=== PATIENT | female | born 1945 | race Caucasian/White ===

== ENCOUNTER 2016-05-19 12:56 | Emergency (ER) | payer MEDICARE, SELFPAY ==
[2016-05-19 13:05] VITALS: TEMP 97.9; BMI 32.7
[2016-05-19] MEDS ORDERED: Albuterol/Ipratropium Neb 3 ML NEB NEB ONE (14:40)
[2016-05-19] MEDS ORDERED: METHYLPREDNISOLONE 125 MG/2 ML VIAL IV ONE (14:40)
[2016-05-19 14:53] LABS: BLOOD UREA NITROGEN 15 MG/DL (7-17); CALCIUM 9.9 MG/DL (8.4-10.2); CALCULATED OSMOLALITY 274 MOs/Kg (270-290); CHLORIDE 105 mEq/L (98-107); GLUCOSE 133 MG/DL (70-99); SODIUM LEVEL 141 mEq/L (137-146); TOTAL PROTEIN 8.1 G/DL (6.3-8.2)
--- NOTE | 2016-05-19 14:57 | DIRPT ---
CLINICAL DATA: Chest pain. Cough and congestion earlier this month. Productive cough. EXAM: PORTABLE CHEST 1 VIEW COMPARISON: 08/25/2014 FINDINGS: Facial tissues obscure the medial lung apices. Atherosclerotic aortic arch. Borderline enlargement of the cardiopericardial silhouette. Chronic interstitial accentuation and emphysema noted. Mildly indistinct pulmonary vasculature. No blunting of the costophrenic angles or discrete airspace opacity. IMPRESSION: 1. Emphysema, with some scattered mild scarring. Faint interstitial accentuation, likely chronic. 2. Borderline enlargement of the cardiopericardial silhouette. 3. No airspace opacity identified to suggest bacterial pneumonia process. Electronically Signed By: Jimmy Coyne M.D. On: 05/19/2016 14:54
[2016-05-19 14:58] LABS: PARTIAL THROMB. TIME 28.4 SEC (22-35)
[2016-05-19 14:58] LABS: LEUKOCYTES/URINE NEG (NEGATIVE); NITRITE/URINE NEG (NEGATIVE); RBC/URINE 0-2 (0-5); URINE OCCULT BLOOD NEG (NEG/TRACE)
[2016-05-19 14:59] LABS: AUTOMATED BASOPHIL 0.5 % (0-2); AUTOMATED EOSINOPHIL 0.3 % (0-5); AUTOMATED LYMPH 4.6 % (17-44); AUTOMATED MONOCYTE 1.3 % (3-10); AUTOMATED NEUTROPHIL 93.3 % (45-76); MPV 10.6 fL (7.4-10.4)
--- NOTE | 2016-05-19 16:25 | EDPRACDOC ---
<AdenKarlAngus - Last Filed: 05/19/16 17:09> - General Information Information Source: Patient - History of Present Illness Onset: ON-GOING HPI: C/o sob, productive cough(green) and chest and nasal congestion (green) since beginning of April. PCP gave abx and steroids on Apr 23 with dx of pneumonia. Pt took all abx and steroids but cough and congestion did not improve. Also c/o dark urine. Denies cp, fever, N/V/D, changes in BM. Hx of COPD on home O2 at night 2L, inhalers and nebs, which help. Med hx = COPD< HTN, ashtma, CHF. Surgical hx = none. Current Symptoms: Reports: Cough Shortness of Breath: Mild Cough: Reports: Productive, Green Ear Symptoms: Reports: None Fever Severity/Quality: Reports: no fever Oral Intake: Decreased Urinary Output: Normal Relevant History of: Heart Failure (CHF) Associated Signs & Symptoms:: Reports: Cough, Nasal Symptoms <Aureliano Alejandro - Last Filed: 05/19/16 19:06> - General Information Chief Complaint: Flu-Like Symptoms Stated Complaint: TROUBLE BREATHING CONGESTION HX COPD Home Medications: Home Medications Furosemide [Lasix] 20 mg PO DAILY 03/26/12 Montelukast Sodium [Singulair] 10 mg PO HS 03/26/12 Fluticasone/Salmeterol [Advair 250-50 Diskus] 1 puff INH BID 01/07/13 Ipratropium/Albuterol Sulfate [Combivent Respimat] 1 puff INH QID 01/07/13 Albuterol Sulfate [Ventolin Hfa] 2 puff INH Q6H PRN 09/25/13 Aspirin (Enteric Coated) [Halfprin] 81 mg PO DAILY 09/25/13 Loratadine [Claritin] 10 mg PO DIR 09/25/13 Zolpidem Tartrate [Ambien] 10 mg PO HS 09/25/13 Lactobacillus Acidophilus [Acidophilus] 1 cap PO DAILY #30 09/30/13 Cholecalciferol [Vitamin D3 (cholecalciferol)] 2,000 units PO DAILY 08/25/14 Nebulizer [Erapid Nebulizer] 1 each UNK 08/25/14 Albuterol/Ipratropium Neb [Duoneb] 3 ml NEB Q6H PRN 08/26/14 Fexofenadine HCl [Nereida] 180 mg PO DAILY #20 tab 05/19/16 Losartan Potassium 50 mg PO DAILY 05/19/16 Prednisone [Deltasone, Orasone] 40 mg PO DAILY 5 Days 05/19/16 Allergies/Adverse Reactions: Allergies Allergy/AdvReac Type Severity Reaction Status Date / Time theophylline anhydrous Allergy Severe Insomnia Verified 05/19/16 13:05 [From Cristian-Dur] amlodipine besylate Allergy Edema-Local Verified 05/19/16 13:05 [From Norvasc] ized gabapentin [From Neurontin] Allergy Edema-Gener Verified 05/19/16 13:05 alized ED Past Medical History - History Reviewed Yes Nurses notes reviewed and agree except as marked - Patient Medical History Cardiac History: Reports: Hypertension, Congestive Heart Failure (mild. ECHO 2010: EF 55%. NORMAL systolic function. Impaired relaxation.), Hypercholesterolemia Respiratory History: Reports: Asthma, COPD, Emphysema GI/ History: Reports: Renal Failure (CURRENTLY), Diverticulosis (hx ruptured diverticulum.) Musculoskeletal History: Reports: Arthritis (hands and back) Psychological History: Reports: Anxiety. Denies: Depression, Substance Use Disorder Systemic History: Reports: Hyperthyroidism. Denies: Cancer Surgical History: Reports: Hysterectomy, Tonsillectomy/Adnoidectomy, Other (Ex lab for ruptured diverticulum with colostomy; takedown. Cataracts.) - Family Medical History Reports: Hypertension (mother), Diabetes (sister, mother, father), Cancer ( mother), Cardiac Disorders (father). Denies: Stroke - Social Medical History Smoking Status: Former smoker Social History: Denies: Substance Use Disorder <Aureliano Alejandro - Last Filed: 05/19/16 19:06> EDM Review of Systems - Review of Systems ROS Negative Except as Marked: Yes All systems reviewed and were negative except as marked Nose: Congestion, Discharge Respiratory: Cough, Shortness of Breath Genitourinary: Foul Ordor, Other (dark urine) Neurological: Weakness (general) <Aureliano Alejandro - Last Filed: 05/19/16 19:06> - Physical Exam Last recorded Vital Signs: Last Vital Signs Temp 97.9 F 05/19/16 13:01 Pulse 84 05/19/16 15:29 Resp 22 05/19/16 15:29 BP 204/80 H 05/19/16 15:29 Pulse Ox 94 05/19/16 15:29 Oxygen Pulse Oxygen Saturation 94 O2 Device Room Air Oxygen Flow Rate Fraction of Inspired Oxygen ( FIO2) <Angus Aden - Last Filed: 05/19/16 17:09> - Physical Exam Constitutional: No apparent distress, Alert Oriented to: Time, Person, Place Last recorded Vital Signs: Last Vital Signs Temp 97.9 F 05/19/16 13:01 Pulse 84 05/19/16 15:29 Resp 22 05/19/16 15:29 BP 204/80 H 05/19/16 15:29 Pulse Ox 94 05/19/16 15:29 Oxygen Pulse Oxygen Saturation 94 O2 Device Room Air Oxygen Flow Rate Fraction of Inspired Oxygen ( FIO2) - HEENT Head: Normal Eye Exam: negative: Conjunctival Injection, Scleral Icterus Oropharynx: negative: Drooling TMJ: Normal Nose: Congestion, Discharge Neck: Normal - Respiratory/Cardiovascular Respiratory: Wheezes (bilaterally) Cardiovascular: Normal - GI Tenderness: Non tender - Musculoskeletal Back: Normal Extremities: Normal - Integumentary Skin: Normal - Neurologic Mood Description: Normal Thought: Coherent Perception: Normal <Aureliano Alejandro - Last Filed: 05/19/16 19:06> - Results 05/19/16 14:15 05/19/16 14:15 WBC 6.9 xk/uL (3.8-10.8) 05/19/16 14:15 RBC 3.76 xM/uL (4.20-5.40) L 05/19/16 14:15 Hgb 11.9 g/dL (12.0-16.0) L 05/19/16 14:15 Hct 35.3 % (36-47) L 05/19/16 14:15 MCV 94 fL (81-99) 05/19/16 14:15 MCH 31.7 pg (27-32) 05/19/16 14:15 MCHC 33.7 g/dl (33-36) 05/19/16 14:15 RDW 14.3 % (11.5-14.5) 05/19/16 14:15 Plt Count 174 xk/uL (130-400) 05/19/16 14:15 MPV 10.6 fL (7.4-10.4) H 05/19/16 14:15 Neut % (Auto) 93.3 % (45-76) H 05/19/16 14:15 Lymph % (Auto) 4.6 % (17-44) L 05/19/16 14:15 [place] % (Auto) 1.3 % (3-10) L 05/19/16 14:15 Eos % (Auto) 0.3 % (0-5) 05/19/16 14:15 Baso % (Auto) 0.5 % (0-2) 05/19/16 14:15 Absolute Neuts (auto) 6.42 xk/uL (1.7-8.2) 05/19/16 14:15 Absolute Lymphs (auto) 0.28 xk/uL (0.65-4.75) L 05/19/16 14:15 PT 9.8 SEC (9.2-11.2) 05/19/16 14:15 INR 1.0 05/19/16 14:15 APTT 28.4 SEC (22-35) 05/19/16 14:15 Sodium 141 mEq/L (137-146) 05/19/16 14:15 Potassium 4.5 mEq/L (3.5-5.1) 05/19/16 14:15 Chloride 105 mEq/L (98-107) 05/19/16 14:15 Carbon Dioxide 26 mMOL/L (22-33) 05/19/16 14:15 Anion Gap 15 mEq/L (8-16) 05/19/16 14:15 BUN 15 MG/DL (7-17) 05/19/16 14:15 Creatinine 1.00 MG/DL (0.52-1.04) 05/19/16 14:15 Estimated GFR (MDRD) 55 mL/min (>=60) L 05/19/16 14:15 Glucose 133 MG/DL (70-99) H 05/19/16 14:15 Calculated Osmolality 274 MOs/Kg (270-290) 05/19/16 14:15 Calcium 9.9 MG/DL (8.4-10.2) 05/19/16 14:15 Total Bilirubin 0.6 MG/DL (0.2-1.3) 05/19/16 14:15 AST 18 IU/L (14-36) 05/19/16 14:15 ALT 23 IU/L (9-52) 05/19/16 14:15 Alkaline Phosphatase 115 IU/L (55-165) 05/19/16 14:15 Troponin I < 0.01 ng/mL (<.04) 05/19/16 14:15 Dqd-N-Fyjbjivonms Pept 495 pg/mL (0-900) 05/19/16 14:15 Total Protein 8.1 G/DL (6.3-8.2) 05/19/16 14:15 Albumin 4.5 G/DL (3.5-5.0) 05/19/16 14:15 Urine Color Yellow 05/19/16 14:22 Urine Clarity Clear 05/19/16 14:22 Urine pH 7.0 (5.0-8.0) 05/19/16 14:22 Ur Specific [place] 1.005 (1.003-1.035) 05/19/16 14:22 Urine Protein 1+ (NEG/TRACE) H 05/19/16 14:22 Urine Glucose (UA) Neg (NEGATIVE) 05/19/16 14:22 Urine Ketones Neg (NEGATIVE) 05/19/16 14:22 Urine Occult Blood Neg (NEG/TRACE) 05/19/16 14:22 Urine Nitrite Neg (NEGATIVE) 05/19/16 14:22 Urine Bilirubin Neg (NEGATIVE) 05/19/16 14:22 Urine Urobilinogen <2.0 MG/DL (0-1) 05/19/16 14:22 Ur Leukocyte Esterase Neg (NEGATIVE) 05/19/16 14:22 Urine RBC 0-2 (0-5) 05/19/16 14:22 Ur Epithelial Cells Occ 05/19/16 14:22 Urine Mucus Occ (NEG/OCC) 05/19/16 14:22 Lab Results 05/19/16 05/19/16 05/19/16 14:22 14:15 14:15 WBC 6.9 RBC 3.76 L Hgb 11.9 L Hct 35.3 L MCV 94 MCH 31.7 MCHC 33.7 RDW 14.3 Plt Count 174 MPV 10.6 H Neut % (Auto) 93.3 H Lymph % (Auto) 4.6 L [place] % (Auto) 1.3 L Eos % (Auto) 0.3 Baso % (Auto) 0.5 Absolute Neuts (auto) 6.42 Absolute Lymphs (auto) 0.28 L PT 9.8 INR 1.0 APTT 28.4 Sodium Potassium Chloride Carbon Dioxide Anion Gap BUN Creatinine Estimated GFR (MDRD) Glucose Calculated Osmolality Calcium Total Bilirubin AST ALT Alkaline Phosphatase Troponin I Zyp-P-Qlblloadubd Pept Total Protein Albumin Urine Color Yellow Urine Clarity Clear Urine pH 7.0 Ur Specific [place] 1.005 Urine Protein 1+ H Urine Glucose (UA) Neg Urine Ketones Neg Urine Occult Blood Neg Urine Nitrite Neg Urine Bilirubin Neg Urine Urobilinogen <2.0 Ur Leukocyte Esterase Neg Urine RBC 0-2 Ur Epithelial Cells Occ Urine Mucus Occ 05/19/16 14:15 WBC RBC Hgb Hct MCV MCH MCHC RDW Plt Count MPV Neut % (Auto) Lymph % (Auto) [place] % (Auto) Eos % (Auto) Baso % (Auto) Absolute Neuts (auto) Absolute Lymphs (auto) PT INR APTT Sodium 141 Potassium 4.5 Chloride 105 Carbon Dioxide 26 Anion Gap 15 BUN 15 Creatinine 1.00 Estimated GFR (MDRD) 55 L Glucose 133 H Calculated Osmolality 274 Calcium 9.9 Total Bilirubin 0.6 AST 18 ALT 23 Alkaline Phosphatase 115 Troponin I < 0.01 Bnw-A-Dmtcqcdnqzx Pept 495 Total Protein 8.1 Albumin 4.5 Urine Color Urine Clarity Urine pH Ur Specific [place] Urine Protein Urine Glucose (UA) Urine Ketones Urine Occult Blood Urine Nitrite Urine Bilirubin Urine Urobilinogen Ur Leukocyte Esterase Urine RBC Ur Epithelial Cells Urine Mucus <Angus Aden - Last Filed: 05/19/16 17:09> - Results 05/19/16 14:15 05/19/16 14:15 WBC 6.9 xk/uL (3.8-10.8) 05/19/16 14:15 RBC 3.76 xM/uL (4.20-5.40) L 05/19/16 14:15 Hgb 11.9 g/dL (12.0-16.0) L 05/19/16 14:15 Hct 35.3 % (36-47) L 05/19/16 14:15 MCV 94 fL (81-99) 05/19/16 14:15 MCH 31.7 pg (27-32) 05/19/16 14:15 MCHC 33.7 g/dl (33-36) 05/19/16 14:15 RDW 14.3 % (11.5-14.5) 05/19/16 14:15 Plt Count 174 xk/uL (130-400) 05/19/16 14:15 MPV 10.6 fL (7.4-10.4) H 05/19/16 14:15 Neut % (Auto) 93.3 % (45-76) H 05/19/16 14:15 Lymph % (Auto) 4.6 % (17-44) L 05/19/16 14:15 [place] % (Auto) 1.3 % (3-10) L 05/19/16 14:15 Eos % (Auto) 0.3 % (0-5) 05/19/16 14:15 Baso % (Auto) 0.5 % (0-2) 05/19/16 14:15 Absolute Neuts (auto) 6.42 xk/uL (1.7-8.2) 05/19/16 14:15 Absolute Lymphs (auto) 0.28 xk/uL (0.65-4.75) L 05/19/16 14:15 PT 9.8 SEC (9.2-11.2) 05/19/16 14:15 INR 1.0 05/19/16 14:15 APTT 28.4 SEC (22-35) 05/19/16 14:15 Sodium 141 mEq/L (137-146) 05/19/16 14:15 Potassium 4.5 mEq/L (3.5-5.1) 05/19/16 14:15 Chloride 105 mEq/L (98-107) 05/19/16 14:15 Carbon Dioxide 26 mMOL/L (22-33) 05/19/16 14:15 Anion Gap 15 mEq/L (8-16) 05/19/16 14:15 BUN 15 MG/DL (7-17) 05/19/16 14:15 Creatinine 1.00 MG/DL (0.52-1.04) 05/19/16 14:15 Estimated GFR (MDRD) 55 mL/min (>=60) L 05/19/16 14:15 Glucose 133 MG/DL (70-99) H 05/19/16 14:15 Calculated Osmolality 274 MOs/Kg (270-290) 05/19/16 14:15 Calcium 9.9 MG/DL (8.4-10.2) 05/19/16 14:15 Total Bilirubin 0.6 MG/DL (0.2-1.3) 05/19/16 14:15 AST 18 IU/L (14-36) 05/19/16 14:15 ALT 23 IU/L (9-52) 05/19/16 14:15 Alkaline Phosphatase 115 IU/L (55-165) 05/19/16 14:15 Troponin I < 0.01 ng/mL (<.04) 05/19/16 14:15 Tbh-Y-Scbjhjbsjdc Pept 495 pg/mL (0-900) 05/19/16 14:15 Total Protein 8.1 G/DL (6.3-8.2) 05/19/16 14:15 Albumin 4.5 G/DL (3.5-5.0) 05/19/16 14:15 Urine Color Yellow 05/19/16 14:22 Urine Clarity Clear 05/19/16 14:22 Urine pH 7.0 (5.0-8.0) 05/19/16 14:22 Ur Specific [place] 1.005 (1.003-1.035) 05/19/16 14:22 Urine Protein 1+ (NEG/TRACE) H 05/19/16 14:22 Urine Glucose (UA) Neg (NEGATIVE) 05/19/16 14:22 Urine Ketones Neg (NEGATIVE) 05/19/16 14:22 Urine Occult Blood Neg (NEG/TRACE) 05/19/16 14:22 Urine Nitrite Neg (NEGATIVE) 05/19/16 14:22 Urine Bilirubin Neg (NEGATIVE) 05/19/16 14:22 Urine Urobilinogen <2.0 MG/DL (0-1) 05/19/16 14:22 Ur Leukocyte Esterase Neg (NEGATIVE) 05/19/16 14:22 Urine RBC 0-2 (0-5) 05/19/16 14:22 Ur Epithelial Cells Occ 05/19/16 14:22 Urine Mucus Occ (NEG/OCC) 05/19/16 14:22 Lab Results 05/19/16 05/19/16 05/19/16 14:22 14:15 14:15 WBC 6.9 RBC 3.76 L Hgb 11.9 L Hct 35.3 L MCV 94 MCH 31.7 MCHC 33.7 RDW 14.3 Plt Count 174 MPV 10.6 H Neut % (Auto) 93.3 H Lymph % (Auto) 4.6 L [place] % (Auto) 1.3 L Eos % (Auto) 0.3 Baso % (Auto) 0.5 Absolute Neuts (auto) 6.42 Absolute Lymphs (auto) 0.28 L PT 9.8 INR 1.0 APTT 28.4 Sodium Potassium Chloride Carbon Dioxide Anion Gap BUN Creatinine Estimated GFR (MDRD) Glucose Calculated Osmolality Calcium Total Bilirubin AST ALT Alkaline Phosphatase Troponin I Lhw-O-Oawjthugxjo Pept Total Protein Albumin Urine Color Yellow Urine Clarity Clear Urine pH 7.0 Ur Specific [place] 1.005 Urine Protein 1+ H Urine Glucose (UA) Neg Urine Ketones Neg Urine Occult Blood Neg Urine Nitrite Neg Urine Bilirubin Neg Urine Urobilinogen <2.0 Ur Leukocyte Esterase Neg Urine RBC 0-2 Ur Epithelial Cells Occ Urine Mucus Occ 05/19/16 14:15 WBC RBC Hgb Hct MCV MCH MCHC RDW Plt Count MPV Neut % (Auto) Lymph % (Auto) [place] % (Auto) Eos % (Auto) Baso % (Auto) Absolute Neuts (auto) Absolute Lymphs (auto) PT INR APTT Sodium 141 Potassium 4.5 Chloride 105 Carbon Dioxide 26 Anion Gap 15 BUN 15 Creatinine 1.00 Estimated GFR (MDRD) 55 L Glucose 133 H Calculated Osmolality 274 Calcium 9.9 Total Bilirubin 0.6 AST 18 ALT 23 Alkaline Phosphatase 115 Troponin I < 0.01 Tbn-H-Ljrfjqtircp Pept 495 Total Protein 8.1 Albumin 4.5 Urine Color Urine Clarity Urine pH Ur Specific [place] Urine Protein Urine Glucose (UA) Urine Ketones Urine Occult Blood Urine Nitrite Urine Bilirubin Urine Urobilinogen Ur Leukocyte Esterase Urine RBC Ur Epithelial Cells Urine Mucus - EKG EKG #1 EKG Time: 14:08 Rate: bpm: 91 Rhythm: Afib Block: None Hypertrophy: None ST: Normal EKG #2 EKG Time: 16:52 -: Yes EKG interpreted by me Rate: bpm: 87 Rhythm: NSR Block: None Hypertrophy: None ST: Normal Comments: pt did not have irregular pulse, or irregular rate on monitor, did repeat E - Diagnostic Imaging Chest Image interpreted by: Radiologist EXAM: PORTABLE CHEST 1 VIEW COMPARISON: 08/25/2014 FINDINGS: Facial tissues obscure the medial lung apices. Atherosclerotic aortic arch. Borderline enlargement of the cardiopericardial silhouette. Chronic interstitial accentuation and emphysema noted. Mildly indistinct pulmonary vasculature. No blunting of the costophrenic angles or discrete airspace opacity. IMPRESSION: 1. Emphysema, with some scattered mild scarring. Faint interstitial accentuation, likely chronic. 2. Borderline enlargement of the cardiopericardial silhouette. 3. No airspace opacity identified to suggest bacterial pneumonia process. Electronically Signed By: Jimmy Coyne M.D. On: 05/19/2016 14:54 <Aureliano Alejandro - Last Filed: 05/19/16 19:06> Decision Time to Discharge: 17:09 <Angus Aden - Last Filed: 05/19/16 17:09> - Departure Disposition: Home Education/Counseling Given To: Patient, Family Member Education/Counseling Given Regarding: Diagnosis, Treatment, Prognosis, Follow Up <Aureliano Alejandro - Last Filed: 05/19/16 19:06> - Departure Condition: Stable Final Diagnosis: COPD exacerbation Instructions: Influenza (ED), Upper Respiratory Infection (ED), COPD (Chronic Obstructive Pulmonary Disease) (ED) Referrals: Carlito Salas MD [Primary Care Provider] - One Week Prescriptions: New Fexofenadine HCl [Nereida] 180 mg PO DAILY #20 tab Prednisone [Deltasone, Orasone] 40 mg PO DAILY 5 Days No Action Furosemide [Lasix] 20 mg PO DAILY Montelukast Sodium [Singulair] 10 mg PO HS Ipratropium/Albuterol Sulfate [Combivent Respimat] 1 puff INH QID Fluticasone/Salmeterol [Advair 250-50 Diskus] 1 puff INH BID Loratadine [Claritin] 10 mg PO DIR Albuterol Sulfate [Ventolin Hfa] 2 puff INH Q6H PRN PRN Reason: Shortness Of Breath Aspirin (Enteric Coated) [Halfprin] 81 mg PO DAILY Zolpidem Tartrate [Ambien] 10 mg PO HS Lactobacillus Acidophilus [Acidophilus] 1 cap PO DAILY #30 Cholecalciferol [Vitamin D3 (cholecalciferol)] 2,000 units PO DAILY Nebulizer [Erapid Nebulizer] 1 each UNK Albuterol/Ipratropium Neb [Duoneb] 3 ml NEB Q6H PRN PRN Reason: Shortness Of Breath Losartan Potassium 50 mg PO DAILY Additional Instructions: Follow up with primary care. Continue to use nebs at home. Use mucinex to loosen up chest congestion. Return to ED for any new or worsening symptoms.
[2016-05-19] MEDS ORDERED: LABETALOL 20 MG/4 ML SYRINGE IV ONE (17:10)
[2016-05-19] MEDS ORDERED: hydrALAZINE 10 MG TAB PO ONE (17:18)
[2016-05-19 17:54] VITALS: BP 148/91; PULSE 90
== END 2016-05-19 17:54 | disposition home or self-care (01) ==
LOC: ED 12:56
DX: J44.1 Chronic obstructive pulmonary disease with (acute) exacerbation (principal)
CPT/HCPCS: 36415; 71010; 80053; 81001; 83880; 84484; 85025; 85610; 85730; 93005; 94640; 96374; 99285; A9270; J2930; J7620; J3490